=== PATIENT | female | born 1950 | race Caucasian/White ===

== ENCOUNTER → 2019-04-06 14:59 | Outpatient (CLI) | payer MEDICARE, SELFPAY ==
--- NOTE | 2019-04-06 15:02 | BI_ITS ---
MAMMOGRAPHY - BILATERAL SCREENING REASON FOR EXAM: Female, 68 years old. Routine annual screening examination. PERTINENT HISTORY: Non-contributory. Remote right stereotactic breast biopsy. TECHNIQUE: Digital bilateral breast alex (3D mammographic acquisition) in the CC and MLO projections. 2-D mediolateral oblique (MLO) and craniocaudad (CC) views of both breasts were obtained. CAD: Full Field Digital Mammography with Computer Added Detection was performed. COMPARISON: Comparison is made with prior study dated June 02, 2017 and February 15, 2015. FINDINGS: Breast Composition: The breasts are almost entirely fatty. There are no dominant masses or suspicious calcifications. A tissue clip marker is seen in the upper outer aspect of the right breast. Stable benign-appearing rounded calcifications in the axillary region of the right breast. No other significant abnormalities are identified. There has been no significant change since the prior study. BI/SCREEN MAMM (CAD) W/ALEX BILAT IMPRESSION: Stable bilateral screening mammogram. Yearly follow-up mammogram recommended. (A) ASSESSMENT CATEGORY: BIRADS Category 2: Benign. A letter regarding these results will be sent to the patient by the facility within 30 days. Approximately 10% of breast cancers are not detected by mammography. A normal mammogram should not delay biopsy of a clinically suspicious abnormality. [id number] Electronically Signed: Jesus Tello, at 8:57 EST , Service support ,
== END ==
PROVIDERS: Family Provider Family Medicine; PCP Family Medicine; Referring Provider Family Medicine; Visit Provider Family Medicine
DX: Z12.31 Encounter for screening mammogram for malignant neoplasm of breast (principal)
CPT/HCPCS: 77063; 77067

== ENCOUNTER 2021-07-25 11:19 | Outpatient (CLI) | payer MEDICARE, SELFPAY ==
--- NOTE | 2021-07-25 11:28 | RAD_ITS ---
STUDY: X-RAY EXAMINATION: SCOLIOSIS SERIES REASON FOR EXAM: Female, 70 years old. SCOLIOSIS, IDIOPATHIC TECHNIQUE: 1 view(s) of the thoracolumbar spine were obtained in the upright standing position. COMPARISON: None. FINDINGS: There is a 96 degree levoscoliosis of the thoracolumbar spine with the apex of the convexity at the L2/L3. level. Normal kyphosis of the thoracic spine. Normal thoracic vertebrae and endplates. Normal disc space heights of the thoracic spine. Normal lordosis of the lumbar spine. Normal lumbar vertebrae and endplates. Normal disc space heights of the lumbar spine. The soft tissue structures are unremarkable. RAD/Scoliosis 2 or 3 views IMPRESSION: Severe levoscoliosis of the thoracolumbar spine with deformity of the chest and abdomen. Electronically Signed: Garland Kirk MD at 16:21 EST ,
[2021-07-25 15:42] LABS: Anion Gap 8 (5-15); BUN 21 mg/dL (7-18); BUN/Creat Ratio 32.6 RATIO (10-20); Calcium,Total 9.6 mg/dL (8.5-10.1); Chloride 102 mmol/L (98-107); Cholesterol 203 mg/dL (200); Creatinine, Serum 0.64 mg/dL (0.55-1.02); EST Glomerular Filtration Rate 96 mL/min (>60); Est Glom Filt Rate - Afr Amer 116 mL/min (>60); Glucose 83 mg/dL (74-106); High Density Lipoprotein 79 mg/dL; Potassium 3.6 mmol/L (3.5-5.1); Sodium Level 137 mmol/L (136-145); Triglycerides 52 mg/dL; Very Low Density Lipoprotein 10 mg/dL (5-40)
[2021-07-25 15:44] LABS: Vitamin D,25 Hydroxy 30.4 ng/mL
== END 2021-07-25 23:59 | disposition home or self-care (01) ==
LOC: MTLAB 11:26
PROVIDERS: PCP Family Medicine; Referring Provider Family Medicine; Visit Provider Family Medicine
DX: Z00.00 Encounter for general adult medical examination without abnormal findings (principal); M41.20 Other idiopathic scoliosis, site unspecified
CPT/HCPCS: 36415; 72082; 80048; 80061; 82306

== ENCOUNTER → 2022-08-19 | Outpatient (CLI) | payer MEDICARE, SELFPAY | END | disposition home or self-care (01) | LOC: LABSPEC 11:09 | PROVIDERS: PCP Family Medicine; Referring Provider Nurse Practitioner Family; Visit Provider Nurse Practitioner Family | DX: R30.0 Dysuria (principal) | CPT/HCPCS: 87086 ==

== ENCOUNTER → 2023-03-09 | Outpatient (CLI) | payer MEDICARE, SELFPAY ==
--- NOTE | 2023-03-09 08:05 | BI_ITS ---
MAMMOGRAPHY - BILATERAL SCREENING REASON FOR EXAM: Female, 72 years old. Routine annual screening examination. PERTINENT HISTORY: Non-contributory. History of prior right stereotactic breast biopsy. TECHNIQUE: Digital bilateral breast alex (3D mammographic acquisition) in the CC and MLO projections. 2-D mediolateral oblique (MLO) and craniocaudad (CC) views of both breasts were obtained. CAD: Full Field Digital Mammography with Computer Added Detection was performed. COMPARISON: Comparison is made with prior study dated April 06, 2019. FINDINGS: Breast Composition: There are scattered areas of fibroglandular density. There now is evidence of a 2 cm by 1.4 cm irregular mass in the axillary region of the right breast. Biopsy recommended. No other significant abnormalities are identified. BI/SCRN MAMM (CAD)W/ALEX BILAT IMPRESSION: 2 cm x 1.4 cm irregular mass in the axillary region of the right breast. Biopsy recommended. ASSESSMENT CATEGORY: BIRADS Category 5: Highly Suggestive of Malignancy - Appropriate Action Should Be Taken. A letter regarding these results will be sent to the patient by the facility within 30 days. Approximately 10% of breast cancers are not detected by mammography. A normal mammogram should not delay biopsy of a clinically suspicious abnormality. [id number] Electronically Signed: Jesus Tello MD at 10:12 EDT ,
== END | disposition home or self-care (01) ==
LOC: OPBI 08:04
PROVIDERS: PCP Family Medicine; Referring Provider Family Medicine; Visit Provider Family Medicine
DX: Z12.31 Encounter for screening mammogram for malignant neoplasm of breast (principal)
CPT/HCPCS: 77063; 77067

== ENCOUNTER → 2023-03-12 | Outpatient (CLI) | payer MEDICARE, SELFPAY ==
--- NOTE | 2023-03-12 | IMM_PTH ---
PATIENT: JOSE ENRIQUE DAVENPORT LOC: [facility] U#:[id number] AGE/SX: 72/F ROOM: RE03/12/[address]: Dr. Paul Iverson MD : 1950 BED: DIS: 03/12/2023 SPEC #: [id number] RECD: 03/16/23 13:39 STATUS: ROS REQ #: [id number] JUNIOR: 03/12/23 00:[address]: Paul Iverson DEPT: IMMUNOHISTOCHEMISTRY RECD BY: Liana Hogue ENTERED: 03/16/23 13:41 SP TYPE: IMMUNO OTHR DR: Dr. Tyler Esparza MD Tissues: Right breast, NOS Procedures: CALPONIN-1 (add) CK5-6 (add) CK8 (add) E-CAD (add) HER2 TATE (add) KI-67 (add) P53 (add) WY (add) IN SITU HYBRIDIZATION P40 (add) MOC-31 (add) ER (initial) PHYSICIAN & [address] [address] SPECIMEN INFORMATION: Tissue Source: Right breast Clinical Info: Right breast mass Specimen Number: [id number] CPT code: 73377, 35937 x7, 74121 x3, 18740 x2 METHODOLOGY: Deparaffinized sections of prefer/formalin-fixed tissue or PAP/DQ stained slides are incubated with monoclonal/polyclonal antibodies/oligonucleotide probes. Localization is made via biotin free immunoperoxidase method. Appropriate controls are performed and reacted as expected. Results on target cell population are indicated in the following table: RESULTS: ANTIBODY / CLONE RESULT P53 (DO-7) positive, wild type pattern Ki-67 (30-9) positive CK8 (64xrwdU84) positive CK5-6 (D5 & 1684) positive, rare basal cell Calponin-1 (UW781G) negative P40 (BC28) negative E-Cad (ECH-6) positive MOC-31 (4561) positive, dim MORPHOMETRIC ANALYSIS ER (clone 6F11) 0% WY (clone 16/1E2) 0% Her-2Neu (clone CB11) 1-2+ The prognostic test for HER2 is performed on formalin-fixed paraffin embedded tissue. A 3+ (positive) staining pattern is defined as intense, homogeneous, complete, circumferential membranous staining in >10% of contiguous tumor cells. A similar weak (2+) staining pattern is interpreted as equivocal. GARETT follow-up testing is recommended for all equivocal cases. Positivity/negativity for ER/WY is reported if > or < 1% of the tumor cells are immuno- reactive, respectively. The ASCO/CAP criteria is used for scoring. Reference: Journal of Clinical Oncology, 2013; 31:8646-3988 & 2010; 16:1401-0335. Ischemic time: Less than one hour. Duration of fixation: 64.5 Hrs; Sample Adequate: Yes. These assays have not been validated on decalcified tissues. Results should be interpreted with caution given the likelihood of false negativity on decalcified specimens or fixation greater than 72 hours. Alternative testing methods (FISH/dualISH for Her2; gene expression for ER) are recommended, if applicable. Please notify the laboratory if additional testing is required. These tests were developed and their performance characteristics determined by [facility]. They may not have been cleared or approved by the U.S. Food and Drug Administration. The FDA has determined that such clearance or approval is not necessary. The above immunohistochemical/dualISH markers are ordered and reviewed by the Pathologist. INTERPRETATION: Right breast, core biopsy: Invasive ductal carcinoma, nuclear grade 3. Negative for estrogen receptors (unfavorable prognostic indicator). Negative for progesterone receptors (unfavorable prognostic indicator). Equivocal for overexpression of QUC4fni. AM:gail 03/17/2023 ADDENDUM ADDENDUM ADDENDUM ADDENDUM ADDENDUM ADDENDUM ADDENDUM ADDENDUM ADDENDUM ADDENDUM ADDENDUM ADDENDUM ADDENDUM ADDENDUM ADDENDUM ADDENDUM ADDENDUM ADDENDUM ADDENDUM ADDENDUM ADDENDUM ADDENDUM 03/18/2023 12:02 ADDENDUM 03/18/2023 12:02 ADDENDUM 03/18/2023 12:02 ADDENDUM 03/18/2023 12:02 ADDENDUM 03/18/2023 12:02 IN SITU HYBRIDIZATION (GARETT) FOR HER2 Interpretation: Not Amplified HER2 : CEP-17 Ratio: 1.17 Average HER2 Signal: 2.4 Average CEP-17 Signal: 1.0 Number of Tumor Cells Scanned: 50 Interpretative Information: The INFORM HER2 Dual GARETT DNA Probe Cocktail assay is performed on formalin-fixed paraffin embedded tissue and determines HER2 gene status by detecting HER2 copies via silver in situ hybridization (SISH) and Chromosome 17 copies via chromogenic red in situ hybridization on tumor cells. A minimum of 20 cells representing > 10% of contiguous and homogeneous invasive tumor cells were analyzed. HER2 gene status is classified as Non-amplified (HER2/Chr17 ratio < 2.0) or Amplified (HER2/Chr17 ratio greater than or equal to 2.0). If the resulting HER2/Chr17 ratio falls within 1.8 - 2.2 (Borderline), retesting by FISH is recommended. Reference: Nieves AC, Marine ZEPEDA, Berna DG, et al: Recommendations for Human Epidermal Growth Factor Receptor 2 Testing in Breast Cancer: [place] [employer] On[employer] / [employer] Clinical Practice Guideline Update. J Clin Oncol 31:6907-8581, 2013. AM:gail 03/18/2023
--- NOTE | 2023-03-12 12:46 | BRBX_PTH ---
PATIENT: JOSE ENRIQUE DAVENPORT LOC: [facility] U#:[id number] AGE/SX: 72/F ROOM: RE03/12/[address]: Dr. Paul Iverson MD : 1950 BED: DIS: 03/12/2023 SPEC #: [id number] RECD: 03/12/23 15:03 STATUS: ROS RETommy #: [id number] JUNIOR: 03/12/23 12:[address]: Paul Iverson DEPT: SURGICAL PATHOLOGY RECD BY: Sandee Lowery ENTERED: 03/15/23 07:52 SP TYPE: BREAST BX OTHR DR: Dr. Tyler Esparza MD Tissues: Breast, NOS Procedures: Surgery Specimen Level IV HEADER OPERATION: Right breast biopsy PRE-OP DIAGNOSIS: Right breast mass TISSUE SUBMITTED: Right breast tissue MICROSCOPIC DIAGNOSIS Right breast mass, core biopsy: Invasive ductal carcinoma with the following characteristics: Nuclear grade - 3/3 Maximal length - 12.5 mm See comment. AM:gail 03/16/2023 COMMENT Immunohistochemistry ([id number]) supports the above diagnosis. Case has been reviewed in consultation with Dr. aLu who concurs with the above diagnosis. IDC:WIL MICROSCOPIC DESCRIPTION Slides are reviewed. GROSS DESCRIPTION Received in fixative is one container labeled with the patient's name and designated right breast. The specimen consists of multiple elongated fragments of fine soft tissue that in aggregate measure 1.5 x 0.5 x 0.1 cm. The entire specimen is submitted in one cassette. / SJ:gail 03/15/2023 TC:0 Ischemic Time: <1 minute Fixation Time: 64.5 hours CPT: 41422 ADDENDUM ADDENDUM ADDENDUM ADDENDUM ADDENDUM ADDENDUM ADDENDUM ADDENDUM ADDENDUM ADDENDUM ADDENDUM 04/19/2023 10:05 ADDENDUM 04/19/2023 10:05 ADDENDUM 04/19/2023 10:05 ADDENDUM 04/19/2023 10:05 ADDENDUM 04/19/2023 10:05 This addendum is added to incorporate an outside pathology consultation report. The case was examined at [facility] (#[id number]) and the following diagnosis was rendered. Right breast mass, core biopsy: Invasive ductal carcinoma, grade 2 (score: tubule 3, unclear 2, mitotic 1), 1.5 cm in greatest length. Please see complete above mentioned consultation report in EMR
== END | disposition home or self-care (01) ==
LOC: LABSPEC 15:39
PROVIDERS: PCP Family Medicine; Referring Provider Surgery; Visit Provider Surgery
DX: N63.10 Unspecified lump in the right breast, unspecified quadrant (principal)
CPT/HCPCS: 81002; 88305; 88341; 88342; 88368

== ENCOUNTER → 2023-03-26 | Outpatient (CLI) | payer MEDICARE, SELFPAY ==
--- NOTE | 2023-03-26 07:59 | US_ITS ---
STUDY: ULTRASOUND BREAST - RIGHT REASON FOR EXAM: Female, 72 years old. Right axillary sonogram for lymphadenopathy. TECHNIQUE: Axial and longitudinal images of the RIGHT breast were performed with a high resolution ultrasound transducer. # OF IMAGES: 49 COMPARISON: Comparison is made with prior mammogram dated March 09, 2023. FINDINGS: RIGHT Breast: Imaging of the right axilla was performed. There is a 1.5 cm x 1.9 cm x 1.7 cm lymph node at the 11:00 position of the breast at 6 cm from the nipple. This is irregular in contour and increased vascularity. Biopsy recommended. There is also evidence of a 1.7 cm x 1 cm and 0.4 cm hypoechoic nodule in the axillary tail. Biopsy recommended. US/Breast Limited Unilateral IMPRESSION: Suspicious right axillary lymph nodes as described. Biopsy recommended. ASSESSMENT CATEGORY: BIRADS Category 4: Suspicious - Biopsy Should Be Considered. A letter regarding these results will be sent to the patient by the facility within 30 days. Electronically Signed: Jesus Tello MD at 14:43 EST ,
== END | disposition home or self-care (01) ==
PROVIDERS: PCP Family Medicine; Referring Provider Surgery; Visit Provider Surgery
DX: R92.8 Other abnormal and inconclusive findings on diagnostic imaging of breast (principal); C50.411 Malignant neoplasm of upper-outer quadrant of right female breast; Z17.1 Estrogen receptor negative status [ER-]
CPT/HCPCS: 76642

== ENCOUNTER → 2023-03-30 | Outpatient (CLI) | payer MEDICARE, SELFPAY ==
--- NOTE | 2023-03-30 | IMM_PTH ---
PATIENT: JOSE ENRIQUE DAVENPORT LOC: [facility] U#:[id number] AGE/SX: 72/F ROOM: RE03/30/[address]: Dr. Rosendo Rondon MD : 1950 BED: DIS: 03/30/2023 SPEC #: [id number] RECD: 04/01/23 14:53 STATUS: S[place]oney REQ #: [id number] JUNIOR: 03/30/23 00:[address]: Rosendo Rondon DEPT: IMMUNOHISTOCHEMISTRY RECD BY: Liana Hogue ENTERED: 04/01/23 14:54 SP TYPE: IMMUNO OTHR DR: Dr. Tyler Esparza MD Tissues: Axillary lymph node, NOS Procedures: BCL-2 (add) CD20 (add) CD3 (add) CD43 (add) CD45 (add) CD5 (add) CD79A (add) KI-67 (add) Pankeratin (initial) PHYSICIAN & INSTITUTION [place] [id number] SPECIMEN INFORMATION: Tissue Source: Right axillary lymph node Clinical Info: Enlarged lymph node right axilla Specimen Number: [id number] CPT code: 51128, 94863 x8 METHODOLOGY: Deparaffinized sections of prefer/formalin-fixed tissue or PAP/DQ stained slides are incubated with monoclonal/polyclonal antibodies/oligonucleotide probes. Localization is made via biotin free immunoperoxidase method. Appropriate controls are performed and reacted as expected. Results on target cell population are indicated in the following table: RESULTS: ANTIBODY / CLONE RESULT AE1-3 (AE1/AE3/PCK26) negative CD3 (PS1) positive CD5 (SP10) positive CD20 (L26) positive CD43 (L60) positive CD45 (RP2/18) positive CD79a (11E3) positive BCL-2 (bcl-2/100/D5) positive Ki-67 (30-9) positive, low These tests were developed and their performance characteristics determined by [facility]. They may not have been cleared or approved by the U.S. Food and Drug Administration. The FDA has determined that such clearance or approval is not necessary. The above immunohistochemical/dualISH markers are ordered and reviewed by the Pathologist. INTERPRETATION: Right axillary sentinel lymph node, core biopsy: Polytypic lymph node tissue. AM:gail 04/02/2023
--- NOTE | 2023-03-30 12:15 | LYMN_PTH ---
PATIENT: JOSE ENRIQUE DAVENPORT LOC: [facility] U#:[id number] AGE/SX: 72/F ROOM: RE03/30/[address]: Dr. Rosendo Rondon MD : 1950 BED: DIS: 03/30/2023 SPEC #: [id number] RECD: 03/30/23 15:46 STATUS: ROS RETommy #: [id number] JUNIOR: 03/30/23 12:[address]: Rosendo Rondon DEPT: SURGICAL PATHOLOGY RECD BY: Chaparrita Sanchez ENTERED: 03/31/23 10:06 SP TYPE: LYMPH NODE OTHR DR: Dr. Tyler Esparza MD Tissues: LYMPH NODE BIOPSY Procedures: Surgery Specimen Level IV HEADER OPERATION: Right axillary biopsy PRE-OP DIAGNOSIS: Enlarged lymph node right axilla TISSUE SUBMITTED: Right axillary lymph node MICROSCOPIC DIAGNOSIS Right axillary sentinel lymph node, core biopsy: Benign lymphoid tissue. See comment. AM:gail 04/01/2023 COMMENT Immunohistochemistry ([id number]) supports the above diagnosis. MICROSCOPIC DESCRIPTION Slides are reviewed. GROSS DESCRIPTION Received in fixative is one container labeled with the patient's name and designated right breast axillary lymph node. The specimen consists of multiple irregular and elongated fragments of fine tissue that in aggregate measure 1.8 x 1.0 x 0.1 cm. The specimen is totally submitted in one cassette. / AM:gail 03/31/2023 TC:5 CPT: 74251
== END | disposition home or self-care (01) ==
LOC: LABSPEC 15:56
PROVIDERS: PCP Family Medicine; Visit Provider Surgery
DX: R59.9 Enlarged lymph nodes, unspecified (principal)
CPT/HCPCS: 88305; 88341; 88342

== ENCOUNTER 2023-04-28 06:54 | Day surgery (SDC) | payer MEDICARE, SELFPAY ==
--- NOTE | 2023-04-26 13:48 | EKG12_ITS ---
Test Reason : PREOP Blood Pressure : / mmHG Vent. Rate : 094 BPM Atrial Rate : 094 BPM P-R Int : 150 ms QRS Dur : 068 ms QT Int : 372 ms P-R-T Axes : 009 -06 025 degrees QTc Int : 465 ms Normal sinus rhythm Normal ECG Confirmed by BISI LONG, AKOSUA ([id number]), film editor supervisor ERLIN BEY ([id number]) on 04/27/2023 6:15:37 AM Referred By: Rosendo Rondon Confirmed By:KASSY MATHEWS MD
[2023-04-26 14:37] LABS: Hematocrit 35.2 % (37-47); Hemoglobin 10.6 g/dL (12.0-15.0); Mean Corp Hgb Conc 30.1 g/dL (32-36); Mean Corpuscular Volume 79.8 fL (81-99); Mean Platelet Vol. 9.7 fl (6.2-12.0); Platelet Count 363 K/mm3 (150-450); RBC Distribution Width CV 19.9 % (11.6-14.6); RBC Distribution Width SD 53.1 fl (35.1-43.9); Red Blood Count 4.41 M/mm3 (4.2-5.4); White Blood Count 15.9 K/mm3 (4.4-11.0)
[2023-04-26 15:07] LABS: Anion Gap 2 (5-15); BUN 21 mg/dL (7-18); BUN/Creat Ratio 40.7 RATIO (10-20); Calcium,Total 9.1 mg/dL (8.5-10.1); Chloride 105 mmol/L (98-107); Creatinine, Serum 0.52 mg/dL (0.55-1.02); EST Glomerular Filtration Rate 124 mL/min (>60); Est Glom Filt Rate - Afr Amer 149 mL/min (>60); Glucose 99 mg/dL (74-106); Potassium 4.2 mmol/L (3.5-5.1); Sodium Level 139 mmol/L (136-145)
[2023-04-27 13:20] LABS: Bacteria 0 SEEN /hpf (None Seen); Mucous, Urine 0 SEEN /hpf (<or=2+); Red Blood Cells-Urine 0 SEEN /hpf (0-5); Squamous Epithelial Cells - UA 0 SEEN /hpf (5-10)
[2023-04-27 13:23] LABS: Color, Urine Yellow (Yellow); Glucose, Dipstick Normal (Normal); Ketone-Dipstick Negative (Negative); Leukocyte Esterase-Dipstick 25 /ul (Negative); Nitrite-Dipstick Negative (Negative); Occult Blood-Urine Negative /ul (Negative); Protein-Dipstick Negative (Negative); Specific Gravity, Urine 1.015 (1.002-1.030); Urine Bilirubin Dipstick Negative (Negative); Urine Clarity Sl. Cloudy (Clear); Urine Urobilinogen Normal (Normal)
[2023-04-27 13:32] LABS: White Blood Cells 0-5 SEEN /hpf (0-5)
--- NOTE | 2023-04-28 07:20 | PCM.HP.BLA ---
History and Physical Date of Admission: 04/28/23 Allergies Penicillins Allergy (Verified 03/30/23 11:58) HivesSulfa (Sulfonamide Antibiotics) Allergy (Verified 03/30/23 11:58) Hives Medications omeprazole 20 mg capsule,delayed release 20 mg PO DAILY 02/19/16 [History Confirmed 03/30/23] biotin 1 mg tablet 1 mg PO DAILY 05/25/16 [History Confirmed 03/30/23] calcium carbonate 600 mg-vitamin D3 10 mcg (400 unit) chewable tablet (Calcium 600 with Vitamin D3) 2 ea PO DAILY 05/25/16 [History Confirmed 03/30/23] coenzyme Q10 50 mg chewable tablet 100 mg PO DAILY 05/25/16 [History Confirmed 03/30/23] cyanocobalamin (vitamin B-12) 500 mcg tablet 500 mcg PO DAILY@0800 05/25/16 [History Confirmed 03/30/23] omega-3 fatty acids-fish oil 684 mg-1,200 mg capsule,delayed release (One-Per-Day [place]-3) 1 ea PO DAILY 05/25/16 [History Confirmed 03/30/23] vitamin B complex 1 ea PO DAILY 05/25/16 [History Confirmed 03/30/23] oxycodone-acetaminophen 5 mg-325 mg tablet 1 - 2 tab PO Q6H PRN PRN Pain #60 tabs 05/27/16 [Rx Confirmed 03/30/23] nystatin 100,000 unit/gram topical powder 1 applic topical BID #30 grams 03/22/23 [Rx Confirmed 03/30/23] PFSH Medical History Abnormal mammogram Breast cancer Breast mass, right GERD (gastroesophageal reflux disease) Scoliosis Surgical History History of hysterectomy History of lumpectomy of right breast History of surgery on wrist Family History Father Cancer Pancreas Social History Smoking Status: Never smoker alcohol intake: never substance use type: does not use HPI HPI HPI: 72-year-old female who returns status post right axillary ultrasound performed at the [facility] on March 26, 2023 suggesting a 1.5 x 1.9 x 1.7 cm lymph node 11 o'clock position +6 cm. Irregular contour and increased vascularity biopsy recommended. BI-RADS Category 4. I have personally reviewed the images and find this lymph node somewhat more difficult to image compared to the other lymph nodes that are identified and appear more normal. STUDY: ULTRASOUND BREAST - RIGHT REASON FOR EXAM: Female, 72 years old. Right axillary sonogram for lymphadenopathy. TECHNIQUE: Axial and longitudinal images of the RIGHT breast were performed with a high resolution ultrasound transducer. # OF IMAGES: 49 COMPARISON: Comparison is made with prior mammogram dated March 09, 2023. FINDINGS: RIGHT Breast: Imaging of the right axilla was performed. There is a 1.5 cm x 1.9 cm x 1.7 cm lymph node at the 11:00 position of the breast at 6 cm from the nipple. This is irregular in contour and increased vascularity. Biopsy recommended. There is also evidence of a 1.7 cm x 1 cm and 0.4 cm hypoechoic nodule in the axillary tail. Biopsy recommended. US/Breast Limited Unilateral IMPRESSION: Suspicious right axillary lymph nodes as described. Biopsy recommended. ASSESSMENT CATEGORY: BIRADS Category 4: Suspicious - Biopsy Should Be Considered. A letter regarding these results will be sent to the patient by the facility within 30 days. Electronically Signed: Jesus Tello MD at 14:43 EST , My previous notes reflect the following Visit Reasons: DISCUSS BREAST SURGERY Chief Complaint: discuss breast surgery Cctv Technician Required: No Accompanied by: Is patient in pain?: No Allergies Penicillins Allergy (Verified 03/22/23 12:26) HivesSulfa (Sulfonamide Antibiotics) Allergy (Verified 03/22/23 12:26) Hives Medications omeprazole 20 mg capsule,delayed release 20 mg PO DAILY 02/19/16 [History Confirmed 03/22/23] biotin 1 mg tablet 1 mg PO DAILY 05/25/16 [History Confirmed 03/22/23] calcium carbonate 600 mg-vitamin D3 10 mcg (400 unit) chewable tablet (Calcium 600 with Vitamin D3) 2 ea PO DAILY 05/25/16 [History Confirmed 03/22/23] coenzyme Q10 50 mg chewable tablet 100 mg PO DAILY 05/25/16 [History Confirmed 03/22/23] cyanocobalamin (vitamin B-12) 500 mcg tablet 500 mcg PO DAILY@0800 05/25/16 [History Confirmed 03/22/23] omega-3 fatty acids-fish oil 684 mg-1,200 mg capsule,delayed release (One-Per-Day [place]-3) 1 ea PO DAILY 05/25/16 [History Confirmed 03/22/23] vitamin B complex 1 ea PO DAILY 05/25/16 [History Confirmed 03/22/23] oxycodone-acetaminophen 5 mg-325 mg tablet 1 - 2 tab PO Q6H PRN PRN Pain #60 tabs 05/27/16 [Rx Confirmed 03/22/23] nystatin 100,000 unit/gram topical powder 1 applic topical BID #30 grams 03/22/23 [Rx Confirmed 03/22/23] PFSH Medical History (Updated 03/22/23 @ 12:24 by Frannie Heredia) Abnormal mammogram Breast cancer Breast mass, right GERD (gastroesophageal reflux disease) Scoliosis Surgical History (Updated 03/22/23 @ 12:47 by Frannie Heredia) History of hysterectomy History of lumpectomy of right breast History of surgery on wrist Family History (Updated 03/22/23 @ 12:48 by Frannie Heredia) Father Cancer Pancreas Social History Smoking Status: Never smoker alcohol intake: never substance use type: does not use HPI HPI HPI: 72-year-old female. She was seen on March 12, [address] Paul Iverson an urgent visitation to evaluate a BI-RADS 5 mammogram. On that same day he performed an ultrasound-guided needle core biopsy upper outer quadrant right breast mass. I have personally reviewed the mammogram images. 72-year-old female. G7, . Menarche age 10. First child born when she was 23. She did breast-feed. Remotely Dr. Nguyễn did an excisional right breast biopsy for benign disease. She has not been on any estrogen replacement therapy. Family history is negative for breast cancer. She had a remote colonoscopy and apparently tortuous colon according to Dr. Foreman. This left the patient very concerned and so she did not pursue additional colonoscopies. She denies any bright red blood per rectum or melena. She detected a upper outer quadrant right breast mass about 6 weeks ago. Not really tender just focally noted. She has had no dysfunction of the arm no arm swelling. Chronic medical problems include significant scoliosis. This has been progressive over the years. She also has gastroesophageal reflux disease. She is able to accomplish her daily tasks. Occasionally she will use a Pilates ball for exercise. She does take an [id number]-[id number] omeprazole every other day. She has noticed some chronic right lower extremity swelling. Perhaps slightly more noticeable now on the left as well Right breast mass, core biopsy: Invasive ductal carcinoma with the following characteristics: Nuclear grade ? 3/3 Maximal length ? 12.5 mm RESULTS: ANTIBODY / CLONE RESULT P53 (DO-7) positive, wild type pattern Ki-67 (30-9) positive CK8 ([id number]) positive CK5-6 (D5 & 1684) positive, rare basal cell Calponin-1 (LT562L) negative P40 (BC28) negative E-Cad (ECH-6) positive MOC-31 (4561) positive, dim MORPHOMETRIC ANALYSIS ER (clone 6F11) 0% PA (clone 16/1E2) 0% Her-2Neu (clone CB11) 1-2+ March 09, 2023 MAMMOGRAPHY - BILATERAL SCREENING REASON FOR EXAM: Female, 72 years old. Routine annual screening examination. PERTINENT HISTORY: Non-contributory. History of prior right stereotactic breast biopsy. TECHNIQUE: Digital bilateral breast alex (3D mammographic acquisition) in the CC and MLO projections. 2-D mediolateral oblique (MLO) and craniocaudad (CC) views of both breasts were obtained. CAD: Full Field Digital Mammography with Computer Added Detection was performed. COMPARISON: Comparison is made with prior study dated April 06, 2019. FINDINGS: Breast Composition: There are scattered areas of fibroglandular density. There now is evidence of a 2 cm by 1.4 cm irregular mass in the axillary region of the right breast. Biopsy recommended. No other significant abnormalities are identified. BI/SCRN MAMM (CAD)W/ALEX BILAT IMPRESSION: 2 cm x 1.4 cm irregular mass in the axillary region of the right breast. Biopsy recommended. ASSESSMENT CATEGORY: BIRADS Category 5: Highly Suggestive of Malignancy - Appropriate Action Should Be Taken. A letter regarding these results will be sent to the patient by the facility within 30 days. Approximately 10% of breast cancers are not detected by mammography. A normal mammogram should not delay biopsy of a clinically suspicious abnormality. [id number] Electronically Signed: Jesus Tello MD at 10:12 EDT , ROS General General: No weight change, appetite, fatigue, colon cancer, breast cancer or weakness HEENT HEENT: No difficulty swallowing, eye injury, eye surgery, swollen glands or hoarseness Endo Endocrine: No thyroid disease, diabetes mellitus, thyroid cancer, Hair loss, heat intolerance or cold intolerance Skin Skin: No rash or changing moles Breast Breast: Yes right breast lump and abnormal mammogram; No left breast lump, nipple discharge, breast pain, abnormal US or breast enlargement Musc Musculoskeletal: Yes back problems; No arthritis, rheumatoid arthritis, gout or joint pain Cardio Cardiovascular: Yes high blood pressure; No murmur, pacemaker, heart disease, atrial fibrillation, heart attack, heart stent, palpitations, shortness of breat with exertion or chest pain Psych Psychiatric: No depression, anxiety or hearing voices Resp Respiratory: No shortness of breath, No sleep apnea, No cough, No COPD, No asthma, No emphysema and No wheezing Gastro Gastrointestinal: No abdominal pain, No nausea or vomiting, No diarrhea, No constipation, No blood in stool, Yes acid reflux, No hemorrhoids, No ulcers, No gallbladder problem and No black,tarry stools Yefri Hematologic: No blood thinners, No blood disorders, No bleeding, No anemia and No blood clots Neuro Neurologic: No system reviewed and no additional complaints, except as documented, No as per HPI, No abnormal gait, No abnormal hearing, No abnormal movements, No abnormal speech, No behavioral changes, No burning sensations, No confusion, No convulsions, No disequilibrium, No dizziness, No localized weakness, No frequent falls, No headache(s), No lack of coordination, No loss of vision, No memory loss, No numbness, No other visual disturbances, No radicular pain, No restless legs, No sensory deficit, No syncope, No tingling, No tremor(s), No weakness and No other Exam Const General: cooperative, comfortable and no acute distress Nutritional Appearance: average body habitus Other: Marked scoliosis noted with compression on the right HENMT Head: normal to inspection Eyes General: appearance normal, both eyes and all related structures Neck Neck: normal visual inspection Other: 3+ carotids. No carotid bruit Chest Other: Marked scoliosis. Breath sounds diminished right base but clear. Breath sounds clear on the left Dermal rash inferior mid sternum. Erythematous. Right breast: Easily palpable upper outer quadrant right breast mass with mild ecchymosis and healing biopsy incision. Quite mobile. No axillary or clavicular adenopathy. No nipple discharge Left breast: No focal mass. No nipple discharge. No axillary or clavicular adenopathy Resp Effort & Inspection: normal respiratory effort Cardio Rate: regular rate Rhythm: regular rhythm Other: Bilateral radial pulses 3+ GI Other: Soft, difficult to palpate the liver due to the shift of the costal margin. No gross mass Musc Cervical Spine: normal cervical lordosis Skin General: no rashes or lesions noted Neuro General: patient alert, patient awake and patient oriented x3 Extrem General: no calf tenderness Other: 2+ bilateral extremity swelling, nontender Psych Appearance: grossly normal Assessment and Plan Assessment and Plan (1) Breast cancer: Status: Acute Qualifiers: Breast location: upper outer quadrant of breast Estrogen receptor status: negative Laterality: right Patient sex: female Qualified Code(s): C50.411 - Malignant neoplasm of upper-outer quadrant of right female breast; Z17.1 - Estrogen receptor negative status [ER-] Plan: 72-year-old female. Invasive ductal carcinoma ER and PA negative with HER2 positive. Easily palpable far upper outer quadrant right breast mass with no distortion or deep invasion. No clinically identified adenopathy. I propose for her right axillary ultrasound and a bilateral breast MRI. I have discussed with the patient in detail breast conservation surgery with nuclear tracer blue dye technique. As the lesion is palpable wire localization will not be required. However the patient already does have a hematology oncology appointment scheduled and I concur. She has been instructed that she may be a candidate for chemotherapy and that this might be offered pre- breast surgery. She states that she is not sure that she would pursue that type of treatment. She is present with her and 2 daughters today. They all of had an opportunity to ask and have questions answered. I appreciate the opportunity of assisting with the surgical care. We will pursue the diagnostic testing and await hematology oncology consultation. The family did have concerns regarding the patient's chronic scoliosis. Although this likely compromises her pulmonary function to a degree clinically she appears to be quite stable and I believe could well tolerate breast conservation technique. Copy: Dr. Tyler Rondon M.D., F.A.C.S [facility] General General: Yes breast cancer; No weight change, appetite, fatigue, colon cancer or weakness HEENT HEENT: No difficulty swallowing, eye injury, eye surgery, swollen glands or hoarseness Endo Endocrine: No thyroid disease, diabetes mellitus, thyroid cancer, Hair loss, heat intolerance or cold intolerance Skin Skin: No rash or changing moles Breast Breast: Yes right breast lump and abnormal mammogram; No left breast lump, nipple discharge, breast pain, abnormal US or breast enlargement Musc Musculoskeletal: Yes back problems; No arthritis, rheumatoid arthritis, gout or joint pain Cardio Cardiovascular: Yes high blood pressure; No murmur, pacemaker, heart disease, atrial fibrillation, heart attack, heart stent, palpitations, shortness of breat with exertion or chest pain Psych Psychiatric: No depression, anxiety or hearing voices Resp Respiratory: No shortness of breath, No sleep apnea, No cough, No COPD, No asthma, No emphysema and No wheezing Gastro Gastrointestinal: No abdominal pain, No nausea or vomiting, No diarrhea, No constipation, No blood in stool, Yes acid reflux, No hemorrhoids, No ulcers, No gallbladder problem and No black,tarry stools Yefri Hematologic: No blood thinners, No blood disorders, No bleeding, No anemia and No blood clots Neuro Neurologic: No system reviewed and no additional complaints, except as documented, No as per HPI, No abnormal gait, No abnormal hearing, No abnormal movements, No abnormal speech, No behavioral changes, No burning sensations, No confusion, No convulsions, No disequilibrium, No dizziness, No localized weakness, No frequent falls, No headache(s), No lack of coordination, No loss of vision, No memory loss, No numbness, No other visual disturbances, No radicular pain, No restless legs, No sensory deficit, No syncope, No tingling, No tremor(s), No weakness and No other Office Procedures Biopsy Provider Documentation Ultrasound-guided needle core biopsy right axillary enlarged 1.7 cm lymph node Timeout informed consent was obtained. The patient was taken the procedure room placed upon the table neck and head support provided the right axilla was sterilely prepped and draped ultrasound was performed and rapidly the lymph node that was of concern on preimaging was identified. Under ultrasound guidance 1% lidocaine mixed 50-50 with 0.5% Marcaine was used as a local anesthetic. 7 cc was instilled under careful ultrasound guidance of the lymph node was slightly raised. 14-gauge biopsy needle was advanced to depth and then inserted and fired 5 cores were obtained. A coil marking clip was left in position. Pressure was held for hemostasis but there was very little bleeding. She tolerated the procedure well without apparent complication. Specimens were immediately placed in formalin for analysis. Steri-Strip dressing applied. She tolerated procedure well no apparent complication ice pack was provided. She will be notified of pathology results as they become available. Rosendo Rondon M.D., F.A.C.S. Biopsy Breast Biopsy: [id number] US Guidance Procedure Time Out Time Out Informed consent given: Yes Consent signed: Yes Time out checklist: patient, procedure, site marked/identified, positioning of patient, supplies available, allergies confirmed and team agrees on procedure Time out staff in room: Yes Time out verified: Yes Time out date: 03/30/23 Time out time: 12:28 Assessment and Plan Assessment and Plan (1) Breast cancer: Status: Acute Qualifiers: Breast location: upper outer quadrant of breast Estrogen receptor status: negative Laterality: right Patient sex: female Qualified Code(s): C50.411 - Malignant neoplasm of upper-outer quadrant of right female breast; Z17.1 - Estrogen receptor negative status [ER-] Plan: Enlarged right axillary lymph node ultrasound-guided core biopsy. Pathology pending. The patient will be notified of results. She states that she has consultation still pending at [facility]. Copy: Dr. Tyler Rondon M.D., F.A.C.S. It is of note that the patient contacted our office asking whether we could facilitate management of a portacatheter placement as she was not going to be able to get this placed at the [facility] for further weeks to come. She has otherwise transferred her surgical and oncologic care to [facility] As the patient has right breast cancer with ongoing treatment plan I anticipate a left internal jugular port placement. She is aware of the technique, benefit, risk, alternatives. She has had an opportunity to ask and have questions answered. We will proceed as noted. Rosendo Rondon M.D., F.A.C.S.
--- NOTE | 2023-04-28 07:22 | EX.PCM.DISCH ---
Discharge Instructions Procedure Port-A-Cath Diet Discharge Diet: No restrictions (Pain medication may cause nausea. You should typically eat light foods as you take your pain medication.) Activity Discharge Activity: Return to Normal Activity and May Shower (Leave the bandage on for 2-3 days. When you remove the bandage, leave the steri-strips intact until they fall off.) Additional Activity Instructions:: May not drive, work with heavy equipment, or sign legal documents for [address]. [address] if you are no longer taking narcotic pain medications. You may drive when you are no longer taking pain medications. Dressing / Incision Additional Dressing/Incision Instructions:: You may leave the OpSite plastic dressing on for approximately 3 days and then remove it. Leave the Steri-Strips on for 1 week. Follow Up Care Please Follow Up With: Rosendo Rondon MD When: You may contact the office at [phone] for any difficulties. A routine follow-up appointment will not be required. Discharge Plan Admission Attending Provider: Rosendo Rondon Primary Care Provider: Tyler Esparza Discharge Orders/Prescriptions Prescriptions: No Action nystatin 100,000 unit/gram powder 1 applic topical BID Qty: 30 0RF omeprazole 20 MG capsule 20 mg PO DAILY Patient Comments: acid reflux olanzapine 5 mg tablet 5 mg PO QHS Patient Comments: take 1 tablet by mouth at bedtime ON DAYS 1,2,3,AND,4,FOLLOWING C... (REFER TO PRESCRIPTION NOTES). prochlorperazine maleate 10 mg tablet 10 mg PO Q6H PRN (Reason: nausea and vomiting) Patient Comments: take 1 tablet by mouth every 6 hours if needed for nausea and vomiting lidocaine-prilocaine 2.5-2.5 % cream 1 applic topical PRN Patient Comments: apply THICK LAYER topically as directed 30 to 60 MINUTES BEFORE NEEDLE STICK, THEN COVER AREA Referrals / Follow Up: Tyler Esparza MD [Primary Care Provider] - Disposition Disposition (needs filled in before D/C Order can be placed): Home, Self Care
[2023-04-28 07:36] VITALS: BP 141/70; PULSE 81; RESP 16; TEMP 37.3; O2SAT 98; BMI 26.2
[2023-04-28] MEDS: Lactated Ringers 1,000 ML 15 ML IV (07:44)
[2023-04-28] MEDS: Clindamycin 900 MG/50 ML BAG 75 MG IV (09:03)
[2023-04-28] MEDS: Lidocaine 1% (30 ml sdv) 30 ML Vial (09:45)
[2023-04-28] MEDS: Bupivacaine Mpf 0.5% 30 ML VIAL (09:46)
--- NOTE | 2023-04-28 09:53 | OP.PCM_ITS ---
Report of Operation Date of Procedure: 04/28/23 Pre-Operative Diagnosis: Right breast cancer in need of vascular access for jennifer adjuvant therapy Post-Operative Diagnosis: Same Surgery/Procedure Performed:: Left internal jugular 6 Thai PowerPort placement. Reference [id number], lot [id number], expiry date 10/14/2024 Description of Surgical Findings:: Timeout informed consent was obtained. 72-year-old female was taken to the operating room placed supine on the table underwent monitored anesthesia care. Clindamycin 900 mg were given intravenously. The left neck and chest were sterilely prepped and draped. Under ultrasound guidance 1% lidocaine mixed 50- 50 with 0.5% Marcaine was used as a local anesthetic. Throughout the procedure a total of 5 cc was used. Local was instilled then I did require a couple attempts with a micropuncture needle to gain access to the rather diminutive left internal jugular vein. Seldinger wire technique performed. Then a micropuncture sheath inserted an 035 J-wire was inserted fluoroscopy demonstrat ed good positioning. Local was instilled down upon the left chest wall. Third intercostal space midclavicular line. Transverse incision was created electrocautery was used to make a subcutaneous pocket the tubing was tunneled from the neck to the chest manage sheath dilator was placed over the wire the wire and dilator removed the catheter was advanced through the sheath the sheath was split and then using 1 cc of contrast material the catheter was positioned at the SVC atrial junction. It was irrigated with saline. It was amputated connected to the port secured with the port attachment device. The port was then secured with interrupted 2-0 silk to the chest wall. The skin edges were approximated with interrupted 3-0 Vicryl subdermal stitches. The neck was closed with interrupted 5-0 Vicryl subdermal stitch. Steri-Strips Telfa OpSite dressings applied. The port was accessed with a straight [place] needle and aspirated very readily it was flushed with saline and then 2 cc heparinized saline. Steri-Strips Telfa OpSite dressings applied. Sponge and instrument and needle counts were reported the surgeon to be correct. Specimens none. Drains none. Blood loss minimal. The patient was taken to the recovery room in satisfactory condition with stat portable chest x-ray pending. Rosendo Rondon M.D., F.A.C.S. Surgeon: Rosendo Rondon Type of Anesthesia: Local MAC Anesthesiologist: Real Parekh
[2023-04-28 09:59] VITALS: BP 120/73; BP 141/70; PULSE 77; RESP 16; TEMP 36.6; O2SAT 99
--- NOTE | 2023-04-28 10:00 | RAD_ITS ---
STUDY: X-RAY CHEST REASON FOR EXAM: Female, 72 years old. Port placement TECHNIQUE: Single AP portable view of the chest. COMPARISON: None. FINDINGS: A left-sided Port-A-Cath has been placed. The tip is at the junction of the superior vena cava and right atrium. Mild increased markings at the lung bases suggestive of basilar scarring. There is no demonstrated pleural abnormality. Normal size heart. Normal mediastinum and radha. Normal visualized pulmonary arteries. There is atherosclerotic calcification of the aortic arch with tortuosity. There is a dextroscoliosis of the thoracic spine. Levoscoliosis of the thoracolumbar junction. Normal visualized ribs, clavicles, and shoulders. There is no demonstrated abnormality of the visualized soft tissue structures of the upper abdomen. RAD/Chest 1 View (Portable) IMPRESSION: The tip of the left charisse catheter is at the junction of the superior vena cava and right atrium. Electronically Signed: Jesus Tello MD at 10:40 EST ,
[2023-04-28 10:05] VITALS: BP 141/70; BP 151/77; PULSE 78; RESP 16; O2SAT 97
[2023-04-28 10:10] VITALS: BP 141/70; BP 144/75; PULSE 75; RESP 16; O2SAT 100
[2023-04-28 10:14] VITALS: BP 141/70; BP 145/94; PULSE 75; RESP 16; TEMP 36.4; O2SAT 100
[2023-04-28 11:06] VITALS: BP 141/70
== END 2023-04-28 11:15 | disposition home or self-care (01) ==
LOC: SDC 06:55 → AC 06:56
PROVIDERS: PCP Family Medicine; Referring Provider Surgery; Visit Provider Surgery
PROC: (CPT 36561; principal; 2023-04-28 09:05)
DX: Z45.2 Encounter for adjustment and management of vascular access device (principal); C50.411 Malignant neoplasm of upper-outer quadrant of right female breast; K21.9 Gastro-esophageal reflux disease without esophagitis; Z79.899 Other long term (current) drug therapy; Z17.1 Estrogen receptor negative status [ER-]
CPT/HCPCS: 36561; 00532; 36415; 71045; 77001; 80048; 81001; 85027; 93005; C1894; J7120; J2405

== ENCOUNTER → 2023-10-04 | Outpatient (CLI) | payer MEDICARE, SELFPAY ==
--- NOTE | 2023-10-04 08:34 | ECHOD_ITS ---
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 Myocardial strain analysis was performed in this exam to aid in the assessment of cardiac function. Exam performed in department. Left Ventricle Normal LV size. The global longitudinal strain = -19.9 % (normal). The estimated ejection fraction is 70 %. No evidence for diastolic dysfunction. No regional wall motion abnormalities noted. Right Ventricle Normal RV size. Normal systolic function. Atria There is mild biatrial dilatation. No doppler evidence for ASD. Mitral Valve There is mild to moderate mitral annular calcification. There is no mitral valve stenosis. No mitral valve insufficiency. Tricuspid Valve There is no tricuspid stenosis. Trivial tricuspid valve insufficiency. Pulmonary artery systolic pressure is 35 mmHg. Aortic Valve Trisinus/trileaflet aortic valve. There is no aortic stenosis. Trivial aortic valve insufficiency. Pulmonic Valve There is no pulmonic valvular stenosis. No pulmonic valve insufficiency. Great Vessels Normal aortic root. Pericardium/Pleural No pericardial effusion. MMode/2D Measurements & Calculations LVIDd: 2.8 cm IVSd: 1.4 cm Ao root diam: 3.3 cm LVIDs: 2.1 cm LVPWd: 1.1 cm LA dimension: 3.6 cm RVDd: 3.4 cm FS: 25.0 % LAV(MOD-bp): 43.1 ml LVAd ap4: 19.3 cm2 SV(MOD-sp4): 25.6 ml LAV(MOD-bp) Indexed: 24.7 ml/m2 LVLd ap4: 7.0 cm LAV(MOD-sp2): 33.5 ml EDV(MOD-sp4): 43.3 ml LAV(MOD-sp4): 56.3 ml EDV(sp4-el): 45.1 ml LVAs ap4: 11.6 cm2 LVLs ap4: 6.2 cm ESV(MOD-sp4): 17.8 ml ESV(sp4-el): 18.3 ml EF(MOD-sp4): 59.0 % EF(sp4-el): 59.4 % SV(sp4-el): 26.8 ml LA A4 area: 19.0 cm2 RA A4 area: 14.5 cm2 TAPSE: 2.0 cm Time Measurements MV dec time: 0.20 sec Doppler Measurements & Calculations MV E max tigre: 66.8 cm/sec Lat Peak E' Tigre: 6.9 cm/sec Med Peak E' Tigre: 5.9 cm/sec MV A max tigre: 99.0 cm/sec E/E' lat: 9.7 E/E' med: 11.4 MV E/A: 0.67 MV V2 max: 106.6 cm/sec MV P1/2t max tigre: 79.6 cm/sec Ao V2 max: 114.5 cm/sec MV max P.6 mmHg MV P1/2t: 74.3 msec Ao max P.3 mmHg MV V2 mean: 65.6 cm/sec MV dec slope: 313.7 cm/sec2 Ao V2 mean: 83.1 cm/sec MV mean P.0 mmHg Ao mean P.1 mmHg MV V2 VTI: 18.5 cm MVA(P1/2t): 3.0 cm2 Ao V2 VTI: 24.6 cm AV (velocity ratio): 0.85 AI max tigre: 445.3 cm/sec LV V1 max: 97.6 cm/sec PA V2 max: 104.6 cm/sec AI max P.4 mmHg LV V1 max P.8 mmHg PA V2 mean: 67.9 cm/sec AI dec slope: 256.8 cm/sec2 LV V1 mean P.2 mmHg AI P1/2t: 507.9 msec LV V1 mean: 71.1 cm/sec LV V1 VTI: 20.9 cm TR max tigre: 280.3 cm/sec TR max P.4 mmHg ECHO/Echo Complete Interpretation Summary The estimated ejection fraction is 70 %. No evidence for diastolic dysfunction. Trivial aortic valve insufficiency. Ordering Physician: ATRUN WATTS Referring Physician: TARUN WATTS Performed By: Lonny Gonzalez RCS
== END | disposition home or self-care (01) ==
PROVIDERS: PCP Family Medicine
DX: I71.21 Aneurysm of the ascending aorta, without rupture (principal)
CPT/HCPCS: 93306

== ENCOUNTER 2024-02-29 08:52 | Outpatient (RCR) | payer MEDICARE, SELFPAY ==
--- NOTE | 2024-03-01 10:45 | HP.OTEVAL_ITS ---
Patient's Visit Information Visit Information Visit Information: JOSE ENRIQUE DAVENPORT is a 73 year old F, referred to Occupational Therapy by Dr. Johnathan Flores, , with a diagnosis of breast cancer. Date of Evaluation: 02/29/24 Occupational Therapist: Narda Graham, HOANGR/Teodora, CHT Subjective Subjective: This 73 year old female was seen for OT eval with dx of breast cancer. pt deneins issue with swelling but would like to get her endurance back . Jose Enrique Davenport is a 73 year-old female diagnosed with clinical stage IIA (cT1c pN1a (FN) Mx, ypT1a ypN0 (sn)) grade 3 invasive ductal carcinoma (ER 0%, NE 0%, HER2 1?2+ IHC, negative on FISH) s/p screening mammography (03/09/2023), right breast biopsy (03/12/2023), right breast and right axillary ultrasound (03/26/2023), right axillary ultrasound and lymph node biopsy (03/30/2023), right breast and axillary ultrasound (04/02/2023), completion of neoadjuvant chemotherapy (04/15/2024 ? 09/16/2023), CT lumbar spine without contrast and bone scan (10/07/2023), right breast lumpectomy and sentinel lymph node biopsy (10/19/2023). From 12/13/2023 ? 01/12/2024 she completed adjuvant radiation therapy to the right breast and regional lymph nodes. This 73 year old female was seen for OT eval with the above dx and medical intervention. pt states the Dr did want her to consult with OT to ed. on signs /symptoms of lymphedema or issue with swelling. Pt states she has not noticed anything but has noticed she does not have the endurance or strength she had prior to starting her cancer treatments. Pt would like guidance on some ex and gain back endurance to return to her PLOF. 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 pt is left handed pt has scoliosis pt it trying to return to her exercise program but feels she has lost a lot of endurance and strength ROM Shoulder: right 110 left 130 Elbow: right/left WNL ROM Comments: right side is short side - was able to do some ex- with LB but only 6/10 Strength Shoulder: flexion right 8# left 10# Elbow: triceps R 9#L 8# Biceps 8# left 10# Seater Assembler: right 40# left 50# Lateral Pinch: right 14# left 16# Tripod Pinch: right 18# left 14# Strength Comments: pt demo with a generalized weakness of UB limiting her return to her PLOF. Lymphedema (Circumferential Measure) MCP: right 18cm left 18cm Wrist: right 15cm left 14cm Lower forearm: right 17cm , left 17cm Largest forearm: right 21cm, left 20cm Elbow: right 23cm, left 23cm Largest humerus: right 23cm, left 22cm Axcillary: right 26cm left 23cm Goals Goal: Patient will demonstrate adequate knowledge of self-massage by the end of the second week.: Yes Goal: Patient will demonstrate adequate knowledge of skin care and precautions by the end of the first week.: Yes Goal: Patient will demonstrate adequate knowledge of therapeutic exercises by discharge.: Yes Goal: Patient will select an appropriate compression garment and demonstrate adequate knowledge of correct donning technique, care and wearing schedule by discharge.: Yes Goal: Patient will voice understanding of need to replace compression garment every four to six months by discharge.: Yes Goal:: pt will demo a increase in bilateral UB /alumnae secretary strength by 10# to increase pts IND with IADLs by d/c. pt will report the ability to lift dishes from cabinet IND by d.c pt will report return to her PLOF by d.c Rehabilitation General Assessment: pt demo with generalized weakness from her cancer tx limiting her return to her PLOF. pt demo need for skilled OT servcies 1-2x week for 6 weeks to assist pts return to her PLOF. Today therapist ed. pt on scar mtg, skin mobilization, lymph precautions and symptoms along with self manual lymph massage ravinder. pt demo understanding and agree to POC. Rehabilitation Potential: Good Anticipated Interventions Anticipated Interventions: Strengthening, Education re Diagnosis, Education re Life-long lymphedema Management, Education re Skin Care and Precautions, Education re Correct Donning Tech,Care&Wearing Sched Comp Garments and Home Program Visit Plan Frequency: 1-2x /Week Duration: 4 Weeks General Plan: pt given HEP for increase UB strength pt to use free wts pt to initiate LE strengthening with he own home gym eq. advised to decrease resistance and initiate 2 sets of 6 - pt demo understanding pt to return as needed for review or change in her HEP TEXT: Thank you for the opportunity to evaluate your patient. For Medicare and Medicare HMO plans, please review the plan of care and approve it. It will need to be FAXED BACK to us at [phone] for Medicare purposes. Please let me know if there are questions or concerns regarding this plan of care. Physician Signature: Date:
== END 2024-02-29 19:00 | disposition home or self-care (01) ==
LOC: OT 08:52
PROVIDERS: PCP Family Medicine; Referring Provider Student in an Organized Health Care Education/Training Program; Visit Provider Student in an Organized Health Care Education/Training Program
DX: C50.411 Malignant neoplasm of upper-outer quadrant of right female breast (principal); Z17.1 Estrogen receptor negative status [ER-]
CPT/HCPCS: 97110; 97166

== ENCOUNTER → 2025-04-20 | Outpatient (CLI) | payer MEDICARE, SELFPAY ==
[2025-04-20 13:16] LABS: Anion Gap 11 (5-15); BUN 23 mg/dL (4-19); BUN/Creat Ratio 36.6 RATIO (10-20); Calcium,Total 9.2 mg/dL (7.6-11.0); Carbon Dioxide 25.2 mmol/L (21.0-32.0); Chloride 102 mmol/L (98-108); Cholesterol 163 mg/dL (<=200); Glucose 74 mg/dL (70-99); Low Density Lipoprotein Calc. 96 mg/dL; Potassium 4.5 mmol/L (3.3-5.1); Triglycerides 71 mg/dL; Very Low Density Lipoprotein 14 mg/dL (5-40); cholesterol:hdl ratio screen 3.06
== END | disposition home or self-care (01) ==
LOC: MFPLAB 09:31
PROVIDERS: PCP Family Medicine; Visit Provider Family Medicine
DX: R03.0 Elevated blood-pressure reading, without diagnosis of hypertension (principal)
CPT/HCPCS: 36415; 80048; 80061